=== PATIENT | male | born 1995 | race Caucasian/White ===

== ENCOUNTER 2018-06-16 09:35 | Inpatient (IN) | END 2018-06-19 14:40 | disposition home or self-care (01) | DRG 494 ==

== ENCOUNTER → 2018-07-02 | Outpatient (CLI) | END | disposition home or self-care (01) ==

== ENCOUNTER → 2018-07-19 | Outpatient (CLI) | END | disposition home or self-care (01) ==

== ENCOUNTER → 2018-09-20 | Outpatient (CLI) | payer OTHER ==
[~2018-09-20] MED LIST: DOCU-144 PO; HYDR-3980 PO; TRAM50TA2 PO
--- NOTE | 2018-09-20 16:31 | CONS ---
Consult Date/Type/Reason Admit Date/Time Initial Consult Date Date/Time of Note DATE: 09/20/18 TIME: 16:27 Subjective 23-year-old male 3 months status post ORIF right ankle fracture dislocation. Overall he is doing well. Pain is minimal. He has maintained his nonweightbearing status since last appointment as instructed. For the first 4 weeks after surgery he did not follow weightbearing instructions and is weightbearing as tolerated. He denies fevers and chills. Denies numbness and tingling. Objective Exam eneral: Awake, alert, in no acute distress, pleasant and cooperative Heart: regular rhythm Lungs: breathing comfortably, no tachypnea or dyspnea Musculoskeletal: Right lower extremity: Medial and lateral incisions are well-healed. With no erythema, fluctuance or drainage. There is moderate swelling around the ankle and foot. Range of motion of the ankle is 15 degrees dorsiflexion and 30 degrees plantarflexion. Sensation is intact to light touch throughout sural, saphenous, superficial pe roneal, deep peroneal, plantar nerves. Motor is intact to EHL, FHL, tibialis anterior, gastrocnemius. 2+ dorsalis pedis pulse Results/Medications Home Meds Active Scripts Tramadol HCl (Tramadol HCl) 50 Mg Tablet, 50 MG PO Q6H PRN for BREAKTHROUGH PAIN, #14 TAB Prov:LIN BEARD 06/18/18 Docusate Sodium* (Colace*) 100 Mg Capsule, 100 MG PO BID, #28 CAP Prov:LIN BEARD. 06/18/18 Hydrocodone/Acetaminophen ([place] 10-325 Tablet) 1 Each Tablet, 1 EACH PO Q6H PRN for PAIN, #14 TAB Prov:LIN BEARD 06/18/18 Imaging 3 views of the right ankle were obtained in clinic today and personally reviewed. These were compared to radiographs from 08/20/18. Right ankle status post open reduction internal fixation of a distal third fibula fracture with plates and screws. There is a syndesmotic screw as well. There is a minimally displaced small posterior malleolus fracture that healing from previous x-rays. When compared to previous x-ray there is no increase in widening and asymmetry of the mortise. Fibula is healing well. On immediate post op x-rays the mortise was symmetric in the medial clear space was not widened. There is talar tilt on today's films also not present in the post op films. There is callus formation around the fibula fracture. The tibiotalar joint is reduced. At this time there is no overt signs of hardware failure or loosening. Assessment/Plan Hospital Course (Demo Recall) 23-year-old male 3 months status post reduction internal fixation right ankle fracture dislocation. He is doing well. Fracture is healed. At this time he will be allowed to weight-bear as tolerated. I asked him to begin weightbearing as tolerated in the boot and slowly wean out of the boot over the next month. I will have him start physical therapy for range of motion, stretching, strengthening, proprioception, stability, and balance. Follow-up 6 weeks with 3 views of the right ankle. DEBRA HARRIS MD Sep 20, 2018 16:31
--- NOTE | 2018-09-21 11:24 | RADRPT ---
PROCEDURE: XR right ankle. CLINICAL INDICATION: Fracture. TECHNIQUE: Three views of the ankle were obtained. COMPARISON: 08/20/2018 FINDINGS: There are stable postsurgical changes of open reduction and internal fixation of distal fibular shaft fracture. The hardware is intact and unchanged in alignment. The alignment of the fracture fragments is near anatomic. The syndesmotic screw is again identified which appears unchanged since the prior examination. There is unchanged slight lucency along the fibular side of the syndesmotic screw. The s yndesmotic screw protrudes approximately 4 mm through the medial tibial cortex, unchanged from the pr ior exam. The posterior malleolar fracture appears displaced, unchanged in alignment. There is wideni ng of the medial clear space measuring 9 mm on the AP view. Widening of the tibiotalar joint is also unchanged. IMPRESSION: 1. Stable postsurgical changes of the ankle as described above. 2. Stable widening of the medial clear space and the tibiotalar joint. RPTAT: AAEE Physician Nathen Date Time Electronically viewed and signed by Physician Nathen on 09/21/2018 11:24 RF/
== END | disposition home or self-care (01) ==
LOC: HKI 14:59
PROVIDERS: ATTEND Orthopaedic Surgery Adult Reconstructive Orthopaedic Surgery
DX: S82.891D Other fracture of right lower leg, subsequent encounter for closed fracture with routine healing (principal); X58.XXXD Exposure to other specified factors, subsequent encounter
CPT/HCPCS: 73610; Z7500; G0463

== ENCOUNTER → 2018-10-25 | Outpatient (CLI) | payer OTHER | END | disposition home or self-care (01) | LOC: HKI 09:41 | PROVIDERS: ATTEND Orthopaedic Surgery Adult Reconstructive Orthopaedic Surgery | DX: M25.571 Pain in right ankle and joints of right foot (principal) | CPT/HCPCS: G0463 ==

== ENCOUNTER → 2019-01-24 | Outpatient (CLI) | payer OTHER ==
--- NOTE | 2019-01-24 16:53 | CONS ---
Consult Date/Type/Reason Admit Date/Time Initial Consult Date Date/Time of Note DATE: 01/24/19 TIME: 16:46 Subjective Date of surgery: 06/17/2018 23-year-old male almost 8 months status post open reduction internal fixation of right ankle fracture dislocation. He presents today 3 months after his last visit. He has significant pain and swelling on a daily basis especially when weightbearing. He has not been using a brace or boot. He has been wearing slip on slippers. He was noncompliant during the first 6 weeks after surgery and was weightbearing as tolerated. At that time it was noticed that his syndesmotic fixation partially failed. He was then made strictly nonweightbearing for 6 weeks after that. He was doing better for a while but in the last couple months his pain and swelling has significantly increased. He is not using a gait aid. He does have a limp. Denies fevers and chills. Denies any wound complications. Does have intermittent numbness and tingling throughout his lower extremity. Objective Exam General: Awake, alert, in no acute distress, pleasant and cooperative Heart: regular rhythm Lungs: breathing comfortably, no tachypnea or dyspnea MUSCULOSKELETAL: Right lower extremity: Well-healed lateral and medial incisions. No erythema. There is swelling around the ankle. There is tenderness to palpation over the medial aspect of the ankle as well as the lateral aspect of the ankle. Minimal pain with dorsiflexion plantarflexion. Patient does have pain with manual external rota tion stress test. Sensation intact to light touch in a sural, saphenous, deep peroneal, superficial peroneal, medial and lateral plantar nerve distribution. Motor is intact, patient able to dorsiflex and plantarflex ankle and extend and flex great toe. Dorsalis Pedis pulse +2, Brisk capillary refill. Compartments are soft. Calves non-tender to palpation bilaterally. Results/Medications Home Meds Active Scripts Tramadol HCl (Tramadol HCl) 50 Mg Tablet, 50 MG PO Q6H PRN for BREAKTHROUGH PAIN, #14 TAB Prov:LIN BEARD 06/18/18 Docusate Sodium* (Colace*) 100 Mg Capsule, 100 MG PO BID, #28 CAP Prov:LIN BEARD 06/18/18 Hydrocodone/Acetaminophen ([place] 10-325 Tablet) 1 Each Tablet, 1 EACH PO Q6H PRN for PAIN, #14 TAB Prov:LIN BEARD. 06/18/18 Imaging 3 views of the right ankle with AP and mortise view is weightbearing plus a gravity stress view. Weightbearing films demonstrate reduced tibiotalar joint with a symmetric mortise. The fibula is well-healed. The lateral plate and screws show no signs of loosening and there are no changes. The syndesmotic screw shows signs of loosening with toggling and widening of the screw hole. The gravity stress view does show significant widening of the medial clear space. Assessment/Plan Hospital Course (Demo Recall) 23-year-old male almost 8 months status post open reduction internal fixation of right but mildly older ankle fracture dislocation with syndesmotic injury. His syndesmosis did not heal and fixation has failed. The mortise is widened with gravity stress view. At this time I do not believe conservative treatment will result in a good outcome. I did recommend the patient to undergo revision surgery for removal of hardware and fixation of the syndesmosis with a tight rope versus screw versus both. I explained to the patient that without stabilizing the syndesmosis he would not have a stable ankle joint and you li lacey have continued pain and swelling. I reviewed the benefits and risks with the patient including but not limited to complication anesthesia, medical complications, infection, fracture, neurovascular injury, continued instability, need for repeat or more surgery. He wished to proceed with scheduling surgery. Plan: Schedule removal of hardware right ankle and fixation of syndesmosis Preop clearance Follow-up for preop appointment DEBRA HARRIS MD Jan 24, 2019 16:53
--- NOTE | 2019-01-25 08:57 | RADRPT ---
PROCEDURE: XR Right Ankle. CLINICAL INDICATION: Right ankle pain. TECHNIQUE: 6 views. Frontal, lateral, and oblique. AP weightbearing, oblique with varus stress and oblique with valgus stress. COMPARISON: 10/25/2018. FINDINGS: As seen previously, there has been open reduction and internal fixation of the distal shaft of the fi bula with a lateral plate and multiple screws. Hardware at this site is intact and unchanged. The tib iofibular syndesmotic screw is again noted and is unchanged with lucency along the course of the scre w and protrusion of the distal portion of the screw through the medial tibial cortex measuring 4 mm. There is widening of the medial mortise, unchanged stress views. Articular surfaces are otherwise intact. There is no lytic or blastic lesion. IMPRESSION: 1. Stable postsurgical changes of the right ankle as seen on 10/25/2018. 2. Widening of the medial ankle mortise, unchanged with stress views. 3. Otherwise unremarkable images of the right ankle. RPTAT: QQ .Lexx Seth MD, MD Date Time Electronically viewed and signed by .Lexx Seth MD, on 01/25/2019 08:57 .R/
== END | disposition home or self-care (01) ==
LOC: HKI 14:13
PROVIDERS: ATTEND Orthopaedic Surgery Adult Reconstructive Orthopaedic Surgery
DX: S82.891D Other fracture of right lower leg, subsequent encounter for closed fracture with routine healing (principal); X58.XXXD Exposure to other specified factors, subsequent encounter
CPT/HCPCS: 73610; Z7500; G0463